=== PATIENT | male | born 1945 | race Caucasian/White ===

== ENCOUNTER → 2018-07-23 | Outpatient (CLI) | payer OTHER ==
--- NOTE | 2018-07-23 23:08 | CT ---
EXAMINATION TYPE: CT lumbar spine wo con DATE OF EXAM: 07/23/2018 COMPARISON: None HISTORY: 73-year-old male Chronic low back pain. TECHNIQUE: Contiguous axial scanning of the lumbar spine without IV contrast. Coronal and sagittal re constructions performed. CT DLP: 1891.8 mGycm Automated exposure control for dose reduction was used. FINDINGS: 2.7 cm round fat density lesion of the left adrenal gland suggestive of a myelolipoma. No prevertebra l or paravertebral soft tissue abnormality. Moderate to advanced multilevel degenerative disc disease with a disc space narrowing, vacuum phenome non, and bulging discs throughout. Hypertrophic facet arthropathy is also present throughout with ligamentum flavum thickening. There are trace grade 1 retrolistheses at L2-L3 and L3-L4. Vertebral body heights are preserved. At T11-T12, no significant spinal canal or foraminal stenosis. At T12-L1, no significant canal or foraminal stenosis. At L1-L2, there is left paracentral disc osteophyte complex mildly narrowing the spinal canal and con tributing to mild left neural foraminal stenosis. At L2-L3, facet arthropathy with grade 1 retrolisthesis and bulging disc. Changes result in moderate left and mild right neuroforaminal stenosis and mild overall spinal canal stenosis. At L3-L4, hypertrophic facet arthropathy with ligamentum flavum thickening, grade 1 retrolisthesis, b ulging disc. Changes associated moderate spinal canal stenosis. Moderate to severe right and moderate left neuroforaminal stenosis. At L4-L5, hypertrophic facet arthropathy with ligamentum flavum thickening and bulging disc. Changes result in severe right and moderate left neural foraminal stenosis. There is bilateral lateral recess stenosis as well with mild overall spinal canal stenosis. At L5-S1, there is right paracentral disc osteophyte complex with hypertrophic facet arthropathy. Zoila nges result in [id number] left and moderate to severe right neural foraminal stenosis. There is abutment of the traversing right S1 nerve root as well. No significant spinal canal stenosis. IMPRESSION: 1. MODERATE TO ADVANCED MULTILEVEL DEGENERATIVE DISC DISEASE ALONG WITH HYPERTROPHIC FACET ARTHROPATH Y THROUGHOUT. 2. DEGENERATIVE GRADE 1 RETROLISTHESES AT L2-L3 AND L3-L4. 3. CHANGES RESULT IN MILD OVERALL SPINAL CANAL STENOSIS AT L1-L2, L2-L3, AND L4-L5 . MODERATE SPINAL CANAL STENOSIS AT L3-L4. 4. AT L4-L5, THERE IS SEVERE RIGHT AND MODERATE LEFT NEUROFORAMINAL STENOSIS WELL BILATERAL LAT ERAL RECESS STENOSIS THAT MAY BE AFFECTING THE BILATERAL TRAVERSING L5 NERVE ROOTS. 5. AT L5-S1, THERE IS MODERATE TO SEVERE RIGHT NEUROFORAMINAL STENOSIS WELL DISC OSTEOPHYTE COM PLEX POSSIBLY IMPINGING THE TRAVERSING RIGHT S1 NERVE ROOT. 6. INCIDENTAL 2.7 CM BENIGN MYELOLIPOMA OF THE LEFT ADRENAL GLAND.
== END | disposition home or self-care (01) ==
LOC: RADCTMAIN 15:28
PROVIDERS: ATTEND Physician Assistant Medical
DX: M48.061 Spinal stenosis, lumbar region without neurogenic claudication (principal); M99.73 Connective tissue and disc stenosis of intervertebral foramina of lumbar region; M51.36 Other intervertebral disc degeneration, lumbar region; M46.96 Unspecified inflammatory spondylopathy, lumbar region; M43.16 Spondylolisthesis, lumbar region; M25.78 Osteophyte, vertebrae; M53.86 Other specified dorsopathies, lumbar region
CPT/HCPCS: 72131

== ENCOUNTER 2020-12-21 08:49 | Day surgery (SDC) | payer OTHER ==
[2020-12-17 13:13] VITALS: BMI 37.6
[~2020-12-21 08:49] MED LIST: LACTATED RINGERS 1,000 ML IV SCH; ONDANSETRON 4 MG/2 ML VIAL IVP PRN
[2020-12-21 09:25] VITALS: TEMP 99.5
[2020-12-21] MEDS ORDERED: LIDOCAINE 1% (10MG/ML) FOR IV START INTRADERMA ONE (09:33)
[2020-12-21] MEDS ORDERED: PROPOFOL 10 MG/ML 20 ML VIAL IV ONE (09:49)
[2020-12-21] MEDS ORDERED: LIDOCAINE 1% INJ 10MG/ML (20 ML MDV) ONE (09:49)
[2020-12-21] MEDS ORDERED: IV FLUID CONTINUATION 1,000 ML IV ONE (10:29)
--- NOTE | 2020-12-21 10:40 | P.PCN ---
Date of Procedure: 12/21/20 Description of Procedure: BRIEF HISTORY: Patient is a 75-year-old male presenting for outpatient colonoscopy for evaluation of her personal history of colon polyps. Last colonoscopy 5 years ago as per patient report. No change in bowel habits, abdominal pain, or family history of colon cancer reported. PROCEDURE PERFORMED: Colonoscopy. PREOPERATIVE DIAGNOSIS: Personal history of colon polyps, last colonoscopy 5 years ago ESTIMATED BLOOD LOSS: Minimal. IV sedation per Anesthesia. PROCEDURE: After informed consent was obtained, the patient, was brought into the endoscopy unit. IV sedation was administered by Anesthesia under continuous monitoring. Digital rectal examination was normal. Initially the Olympus CF-190 flexible video colonoscope was then inserted in the rectum, gradually advanced into the cecum without any difficulty. Careful examination was performed as the scope was gradually being withdrawn. Ileocecal valve and the appendiceal orifice were visualized and appeared normal. Prep was excellent. Mucosa of the cecum, ascending colon, transverse colon, descending colon, sigmoid colon, and rectum appeared normal, moderate amount of small and large mouth diverticula in the left colon with associated sigmoid stricture which was able to be traversed . Retroflexion was performed in the rectum and no lesions were seen, moderate internal hemorrhoids . The patient tolerated the procedure well. IMPRESSION: Moderate left colonic diverticulosis. Internal hemorrhoids. RECOMMENDATIONS: Findings of this examination were discussed with the patient and his family. Okay to resume diet. Okay to resume medications. Recommend repeat colonoscopy in 5 years for personal history of colon polyps if medically stable at that time.
[2020-12-21 10:54] VITALS: BP 120/70; PULSE 67; RESP 18
== END 2020-12-21 11:20 | disposition home or self-care (01) ==
LOC: ORWHC2ENDO 08:49
PROVIDERS: ATTEND Internal Medicine
DX: Z12.11 Encounter for screening for malignant neoplasm of colon (principal); K57.30 Diverticulosis of large intestine without perforation or abscess without bleeding; K64.8 Other hemorrhoids; Z90.89 Acquired absence of other organs; Z98.890 Other specified postprocedural states; Z86.010 Personal history of colon polyps; E66.9 Obesity, unspecified; Z68.37 Body mass index [BMI] 37.0-37.9, adult; I10 Essential (primary) hypertension; Z87.442 Personal history of urinary calculi; K21.9 Gastro-esophageal reflux disease without esophagitis; N40.0 Benign prostatic hyperplasia without lower urinary tract symptoms; Z87.891 Personal history of nicotine dependence; Z79.1 Long term (current) use of non-steroidal anti-inflammatories (NSAID); Z88.5 Allergy status to narcotic agent; Z79.899 Other long term (current) drug therapy
CPT/HCPCS: J2001; J2704; G0105; 45378